=== PATIENT | female | born 2005 | race Caucasian/White ===

== ENCOUNTER 2025-01-10 13:19 | Emergency (ER) | payer OTHER, SELFPAY ==
[2025-01-10 13:30] VITALS: BP 115/77; PULSE 108; RESP 18; TEMP 37.3; O2SAT 100
--- NOTE | 2025-01-10 13:53 | ED_ITS ---
HPI - URI/Sore Throat General Chief Complaint: Upper Respiratory Infection Stated Complaint: FEVER/CHILLS/BODY ACHES Time Seen by Provider: 01/10/25 13:55 Source: patient and RN notes reviewed Mode of arrival: ambulatory Limitations: no limitations History of Present Illness HPI Narrative: 19-year-old female presents with concern for sore throat that started Monday. Reports yesterday she had chills and body aches. Reports she has nausea and slight headache. She denies nasal congestion, runny nose, cough. She reports low-grade temperature. MD elicited complaint: sore throat Related Data Home Medications ?Medication ?Instructions ?Recorded ?Confirmed ?Last Taken ?Type cetirizine 10 mg tablet (All Day 10 mg PO DAILY 01/10/25 01/10/25 Unknown History Allergy (cetirizine)) norgestimate 0.18 mg/0.215mg/0.25 1 tablet PO Q24H 01/10/25 01/10/25 Unknown History mg-ethinyl estradiol 0.025 mg tablet (Tri-Lo-Karime) Allergies Allergy/AdvReac Type Severity Reaction Status Date / Time No Known Allergies Allergy Verified 01/10/25 13:27 Review of Systems Review of Systems: CONSTITUTIONAL: Reports malaise, chills EYES: Denies visual changes, redness, or discharge. ENT: Denies rhinorrhea, congestion, sinus pain, otalgia. Reports sore throat. CARDIOVASCULAR: Denies chest pain, palpitations, or edema. RESPIRATORY: Denies cough. Denies dyspnea. GASTROINTESTINAL: Denies abdominal pain, nausea, vomiting, diarrhea SKIN: Denies rash or itching. MUSCULOSKELETAL: Reports myalgia. NEUROLOGIC: Reports headache. All systems reviewed & are unremarkable except as noted in HPI and below PMFSH Comments At time of signature, agree with nursing past medical, surgical, social and family history. There is no relevant family history pertinent to the presenting complaint Exam Narrative: GENERAL: Well-appearing, well-nourished, and in no acute distress. HEAD: Normocephalic EYES: PERRLA, conjunctivae clear ENT: Nares clear. Mucous membranes moist. TM pearly portillo with dull light reflex bilaterally; no tragal tenderness. Oropharynx not erythematous without lesions. Tonsils not enlarged and without exudate, no drooling, no hoarseness, no trismus, uvula midline. NECK: Supple. No lymphadenopathy CHEST: Clear to auscultation, breath sounds equal. No wheezing, rhonchi, rales, or stridor. No respiratory distress, speaks in full sentences. HEART: Regular rate and rhythm. No murmur heard. SKIN: Warm, dry, no rash. NEURO: Alert and oriented x3. PSYCH: Normal mood and affect Course Course Emergency Course: Patient is aware of diagnosis, understands and agrees to treatment plan. Anticipatory guidance given. Patient agrees to follow-up as directed and is aware of reasons to seek care at the emergency department. Portions of this record may have been created with voice recognition software Level of Care: [facility] Visit Vital Signs Vital signs: Vital Signs Temperature 99.2 F 01/10/25 13:30 Pulse Rate 108 H 01/10/25 13:30 Respiratory Rate 18 01/10/25 13:30 Blood Pressure 115/77 01/10/25 13:30 Pulse Oximetry 100 01/10/25 13:30 Temperature 99.2 F 01/10/25 13:30 Pulse Rate 108 H 01/10/25 13:30 Respiratory Rate 18 01/10/25 13:30 Blood Pressure 115/77 01/10/25 13:30 Pulse Oximetry 100 01/10/25 13:30 Reviewed. MDM - URI/Sore Throat MDM Narrative Medical decision making narrative: Differential diagnosis considered: Parrish virus, strep pharyngitis, allergic rhinitis, upper respiratory tract infection, sinusitis, rhinosinusitis, nasopharyngitis. viral pharyngitis, otitis media, otitis externa, pneumonia, bronchitis, viral cough syndrome, viral syndrome, and influenza. Exam findings show no acute concerns or changes; patient is non-toxic appearing and is in no distress. Patient is appropriate for outpatient treatment and follow-up. Lab Data Attestation: I reviewed the patient's lab results. Critical Care Time Critical Care Time Critical Care Time: No Discharge Plan Discharge Clinical Impression: Viral infection Patient Disposition: Home Condition: Stable Instructions: Viral Syndrome (ED) Additional Instructions: Your rapid strep swab was negative today at [facility]. A throat culture will be sent to the laboratory for further testing. If the test is positive, you will receive a phone call within 48 hours and an appropriate antibiotic will be initiated at that time. Your symptoms are likely due to a viral illness, which is not treated with antibiotics. Viral symptoms can be present for up to a few weeks. -Alternate Tylenol and Motrin per package directions for fever or pain. -Antihistamine medication such as Benadryl at night and Zyrtec during the day can help improve symptoms. -Eat and drink things that are easy to swallow, like tea or soup, or popsicles to suck on. -Oral rinses such as: Salt water gargles and/or may use topical anesthetic (eg. Chloraseptic spray) or lozenges to relieve dryness or throat pain). -Frequent hand washing or hand mushroom cultivator is one of the best ways to prevent spread of infection. -Follow up with primary care provider in 2-3 days if condition is not improving; or seek ER visit if you have trouble breathing, cannot drink enough fluids, have muffled voice, difficulty opening your mouth, or severe swelling. Patient Language: Turkish Prescriptions: No Action norgestimate-ethinyl estradiol [Tri-Lo-Karime] 0.18/0.215/0.25 mg-0.025 mg tablet 1 tablet PO Q24H cetirizine [All Day Allergy (cetirizine)] 10 mg tablet 10 mg PO DAILY Follow-up/Referrals: Enmanuel,Aleena [Other] Stand Alone Forms: Work/School Release IP Time of Disposition: 14:23
[2025-01-10 14:44] LABS: EDSTREPNEGPOS1 Negative (Negative)
== END 2025-01-10 14:28 | disposition home or self-care (01) ==
PROVIDERS: Emergency Provider Nurse Practitioner
DX: B34.9 Viral infection, unspecified (principal)
CPT/HCPCS: 87081; 87880; 99203; G0463